=== PATIENT | female | born 1980 | race Caucasian/White ===

== ENCOUNTER 2018-12-27 10:10 | Outpatient (CLI) | payer BC ==
[2018-12-27 17:59] LABS: BASOPHILS % (AUTO) 0.2 %; EOSINOPHILS # (AUTO) 0.1 10^3/uL (0.0-0.7); EOSINOPHILS % (AUTO) 0.5 %; HGB - HEMOGLOBIN 13.3 g/dL (12.0-16.0); LYMPHOCYTES # (AUTO) 3.2 10^3/uL (1.5-3.5); LYMPHOCYTES % (AUTO) 23.5 %; MEAN CORPUSCULAR HEMOGLOBIN 29.6 pg (27.0-31.0); MEAN CORPUSCULAR HGB CONC 32.1 g/dL (32.0-36.0); MEAN CORPUSCULAR VOLUME 92.2 fL (81.0-99.0); MONOCYTES # (AUTO) 1.3 10^3/uL (0.0-1.0); MONOCYTES % (AUTO) 9.2 %; NEUTROPHILS # (AUTO) 9.1 10^3/uL (1.5-6.6); PLT - PLATELET COUNT 541 10^3/uL (130-450); RED BLOOD COUNT 4.49 10^6/uL (4.20-5.40); RED CELL DISTRIBUTION WIDTH 13.1 % (12.0-15.0); WHITE BLOOD COUNT 13.7 x10^3/uL (4.8-10.8)
[2018-12-27 18:46] LABS: ALBUMIN 4.1 g/dL (3.2-5.5); ALBUMIN/GLOBULIN RATIO 1.2 (1.0-2.2); ALKALINE PHOSPHATASE 61 IU/L (42-121); ALT ALANINE AMINOTRANSFERASE 12 IU/L (10-60); AST ASPARTATE AMINOTRANSFERASE 13 IU/L (10-42); BILIRUBIN,TOTAL 0.6 mg/dL (0.2-1.0); BUN - BLOOD UREA NITROGEN 9 mg/dL (6-20); CARBON DIOXIDE - CO2 27 mmol/L (21-32); CHLORIDE 99 mmol/L (101-111); CREATININE 0.6 mg/dL (0.4-1.0); GFR - MDRD 112 (>89); GLUCOSE 85 mg/dL (70-100); IRON 39 ug/dL (28-170); SODIUM 136 mmol/L (135-145); TOTAL PROTEIN 7.5 g/dL (6.7-8.2)
[2018-12-27 18:48] LABS: CRP - C-REACTIVE PROTEIN < 1.0 mg/dL (0-1.0)
[2018-12-27 18:56] LABS: THYROID STIMULATING HORMONE 4.77 uIU/mL (0.34-5.60)
== END 2018-12-27 10:11 | disposition home or self-care (01) ==
LOC: LAB.S 10:10
PROVIDERS: ATTEND Registered Nurse
DX: K50.90 Crohn's disease, unspecified, without complications (principal)
CPT/HCPCS: 36415; 80053; 82306; 82607; 83540; 84443; 85025; 85651; 86140

== ENCOUNTER 2019-01-02 08:39 | Outpatient (CLI) | payer BC | END 2019-01-02 08:40 | disposition home or self-care (01) | LOC: LAB.S 08:39 | PROVIDERS: ATTEND Internal Medicine Gastroenterology | DX: K50.111 Crohn's disease of large intestine with rectal bleeding (principal) | CPT/HCPCS: 36415; 81335; 81599; 86480; 87493 ==

== ENCOUNTER 2019-12-11 08:00 | Outpatient (CLI) | payer BC, OTHER ==
--- NOTE | 2019-12-11 12:37 | XRAY Report ---
PROCEDURE: Foot 3 View RT INDICATIONS: RIGHT FOOT PAIN TECHNIQUE: 3 views of the foot were acquired. COMPARISON: None available FINDINGS: Bones: No fractures or dislocations. No suspicious bony lesions. A mild hallux valgus deformity is seen, with associated degenerative change of the first metatarsophalangeal joint. Soft tissues: No tibiotalar joint effusion. Achilles tendon appears normal. IMPRESSION: Mild hallux valgus deformity. Reviewed by: Chris Romero MD on 12/11/2019 11:35 AM [facility] Approved by: Chris Romero MD on 12/11/2019 11:35 AM [facility] PAUL Station ID: [id number]
== END 2019-12-11 23:59 | disposition home or self-care (01) ==
LOC: DI.S 08:00
PROVIDERS: ATTEND Physician Assistant Medical
DX: M20.11 Hallux valgus (acquired), right foot (principal)

== ENCOUNTER 2020-07-08 09:49 | Outpatient (CLI) | payer OTHER ==
[2020-07-08 14:11] LABS: BASOPHILS % (AUTO) 0.7 %; EOSINOPHILS % (AUTO) 0.7 %; HCT - HEMATOCRIT 37.1 % (37.0-47.0); LYMPHOCYTES # (AUTO) 1.6 10^3/uL (1.5-3.5); LYMPHOCYTES % (AUTO) 37.4 %; MEAN CORPUSCULAR HEMOGLOBIN 29.7 pg (27.0-31.0); MEAN CORPUSCULAR HGB CONC 32.3 g/dL (32.0-36.0); MEAN CORPUSCULAR VOLUME 91.8 fL (81.0-99.0); MEAN PLATELET VOLUME 9.5 fL (7.9-10.8); MONOCYTES # (AUTO) 0.3 10^3/uL (0.0-1.0); MONOCYTES % (AUTO) 7.7 %; NEUTROPHILS # (AUTO) 2.4 10^3/uL (1.5-6.6); NEUTROPHILS % (AUTO) 53.5 %; PLT - PLATELET COUNT 383 10^3/uL (130-450); RED BLOOD COUNT 4.04 10^6/uL (4.20-5.40); RED CELL DISTRIBUTION WIDTH 13.2 % (12.0-15.0); WHITE BLOOD COUNT 4.4 x10^3/uL (4.8-10.8)
[2020-07-08 15:13] LABS: % IRON SATURATION 35 % (20-50); ALBUMIN 4.5 g/dL (3.2-5.5); ALBUMIN/GLOBULIN RATIO 1.7 (1.0-2.2); ALKALINE PHOSPHATASE 52 IU/L (42-121); ALT ALANINE AMINOTRANSFERASE 16 IU/L (10-60); AST ASPARTATE AMINOTRANSFERASE 22 IU/L (10-42); BILIRUBIN,TOTAL 0.9 mg/dL (0.2-1.0); BUN - BLOOD UREA NITROGEN 10 mg/dL (6-20); CALCIUM 9.8 mg/dL (8.5-10.3); CARBON DIOXIDE - CO2 26 mmol/L (21-32); CHLORIDE 101 mmol/L (101-111); CREATININE 0.4 mg/dL (0.4-1.0); GFR - MDRD 179 (>89); GLUCOSE 112 mg/dL (70-100); IRON 145 ug/dL (28-170); POTASSIUM 3.6 mmol/L (3.5-5.0); SODIUM 134 mmol/L (135-145); TOTAL IRON BINDING CAPACITY 414 ug/dL (250-450); TOTAL PROTEIN 7.1 g/dL (6.7-8.2); TRANSFERRIN 296 mg/dL (192-382)
[2020-07-08 15:19] LABS: CRP - C-REACTIVE PROTEIN < 1.0 mg/dL (0-1.0)
[2020-07-08 15:22] LABS: FERRITIN 11.3 ng/mL (11.0-306.8)
[2020-07-08 15:26] LABS: FOLATE 14.34 ng/mL (5.90 - >24.8)
[2020-07-10 12:01] LABS: NIL 0.07 IU/mL; TB1-NIL 0.02 IU/mL; TB2-NIL 0.01 IU/mL
== END 2020-07-08 09:50 | disposition home or self-care (01) ==
LOC: LAB.S 09:49
PROVIDERS: ATTEND Physician Assistant
DX: K50.111 Crohn's disease of large intestine with rectal bleeding (principal)
CPT/HCPCS: 36415; 80053; 82306; 82607; 82728; 82746; 83540; 84466; 85025; 86140; 86480

== ENCOUNTER 2022-05-05 13:34 | Emergency (ER) | payer OTHER ==
--- OUTSIDE RECORDS SUMMARY | 2022-05-05 13:55 | EXTERNAL MEDICAL SUMMARY RPT | Continuity of Care Document ---
:1980 Author Organization [facility] Address [address] [place] [address] Phone Care Team Providers Name Role Phone Unavailable Unavailable Unavailable Shea George Unavailable Unavailable Allergies No information. Encounters No information. Functional Status No information. Immunizations No information. Medications date description facility 2022-05-05 00:00 vedolizumab [facility] [place] 2022-05-05 00:00 vedolizumab [facility] [place] 2022-05-05 00:00 vedolizumab [facility] [place] 2022-05-05 00:00 vedolizumab [facility] [place] Problems date description facility 2022-05-05 00:00 rSr pattern in V1 and V2 [facility] [place] 2022-05-05 00:00 Tremor [facility] [place] 2022-05-05 00:00 Cannabis abuse, unspecified use [facility] [place] 2022-05-05 00:00 Tachycardia [facility] [place] 2022-05-05 00:00 Cannabis abuse [facility] [place] 2022-05-05 00:00 Abnormal involuntary movements [facility] [place] 2022-05-05 00:00 Nonspecific abnormal [facility] electrocardiogram [ECG] [EKG] & [facility] [place] 2022-05-05 00:00 Cannabis abuse, uncomplicated [facility] [place] 2022-05-05 00:00 Tachycardia, unspecified [facility] [place] 2022-05-05 00:00 Tremor, unspecified [facility] [place] 2022-05-05 00:00 Abnormal electrocardiogram [ECG] Walk- In [facility] [EKG] [facility] [place] Procedures date description facility 2022-05-05 00:00 Visit Code Hold [facility] [place] 2022-05-05 00:00 POC GLUCOSE BLOOD TEST Walk-In [facility] [place] 2022-05-05 00:00 EKG Office Complete [facility] [place] Results/Labs test date author facility value unit interpret ation Result panel 1 (unknown) (no date) (unknown) Walk-In (no value) (units (unk nown) Clinic Primary unknown) [facility] [place] Result panel 2 (unknown) (no date) (unknown) Walk-In (no value) (units (unk nown) Clinic Primary unknown) [facility] [place] Social History date description facility 2022-05-05 00:00 Never smoker [facility] [place] Vital Signs date measurement value units 2022-05-05 00:00 BMI 20.71 kg/m2 2022-05-05 00:00 BP_diastolic 82 mmHg 2022-05-05 00:00 BP_systolic 141 mmHg 2022-05-05 00:00 heart_rate 77 /min 2022-05-05 00:00 height_metric 165.1 cm 2022-05-05 00:00 height_standard 65 in 2022-05-05 00:00 respiration_rate 16 /min 2022-05-05 00:00 temperature_metric 36.44 C 2022-05-05 00:00 temperature_standard 97.6 F 2022-05-05 00:00 weight_metric 56.25 kg 2022-05-05 00:00 weight_standard 124 lb
[2022-05-05 14:46] LABS: BASOPHILS % (AUTO) 0.2 %; HCT - HEMATOCRIT 38.1 % (37.0-47.0); HGB - HEMOGLOBIN 12.7 g/dL (12.0-16.0); LYMPHOCYTES # (AUTO) 1.2 10^3/uL (1.5-3.5); LYMPHOCYTES % (AUTO) 13.1 %; MEAN CORPUSCULAR HEMOGLOBIN 30.3 pg (27.0-31.0); MEAN CORPUSCULAR HGB CONC 33.3 g/dL (32.0-36.0); MEAN CORPUSCULAR VOLUME 90.9 fL (81.0-99.0); MEAN PLATELET VOLUME 8.6 fL (7.9-10.8); MONOCYTES # (AUTO) 0.3 10^3/uL (0.0-1.0); MONOCYTES % (AUTO) 3.4 %; NEUTROPHILS # (AUTO) 7.5 10^3/uL (1.5-6.6); NEUTROPHILS % (AUTO) 83.2 %; PLT - PLATELET COUNT 365 10^3/uL (130-450); RED BLOOD COUNT 4.19 10^6/uL (4.20-5.40); RED CELL DISTRIBUTION WIDTH 12.7 % (12.0-15.0); WHITE BLOOD COUNT 9.1 x10^3/uL (4.8-10.8)
[2022-05-05 15:07] LABS: ALBUMIN 4.8 g/dL (3.2-5.5); ALBUMIN/GLOBULIN RATIO 1.5 (1.0-2.2); BILIRUBIN,TOTAL 0.9 mg/dL (0.2-1.0); CALCIUM 10.1 mg/dL (8.5-10.3); CREATININE 0.6 mg/dL (0.4-1.0); POTASSIUM 3.9 mmol/L (3.5-5.0); TOTAL PROTEIN 8.1 g/dL (6.7-8.2)
--- NOTE | 2022-05-05 15:13 | XRAY Report ---
PROCEDURE: Chest 1 View X-Ray INDICATIONS: Chest Pain TECHNIQUE: One view of the chest was acquired. COMPARISON: None. FINDINGS: Surgical changes and devices: None. Lungs and pleura: No pleural effusions or pneumothorax. Lungs are clear. Mediastinum: Mediastinal contours appear normal. Heart size is normal. Bones and chest wall: No suspicious bony lesions. Overlying soft tissues appear unremarkable. IMPRESSION: No acute pulmonary process. Reviewed by: Shila Hutchison MD on 05/05/2022 3:12 PM [facility] Approved by: Shila Hutchison MD on 05/05/2022 3:12 PM [facility] Station ID: [id number]
--- NOTE | 2022-05-05 15:53 | ED Physician Documentation ---
History of Present Illness - Stated complaint Stated Complaint: ANXIETY - Chief complaint Chief Complaint: Cardiac - Additonal information Additional information: 41-year-old female was referred to the emergency department from a local walk-in clinic for evaluation and near syncope. The patient states that for the last few days she has been feeling like she is going to faint. These are typically occurring at rest and she feels like her heart is racing before hand. She is denying dyspnea or chest pain. She has fainted multiple times in the past but usually attributed that to pain or blood draws. Her sister also has a similar history with an extensive work-up and no cause was found. Patient was at home this morning getting her son ready for school when she began to feel the symptoms of near syncope so she summoned 911. EMS felt she could be seen at a local walk-in clinic which she went to before they referred her here Patient has no recent travel, unilateral leg swelling, takes hormones or history of DVT or cancer. She is a non-smoker. She takes citalopram only for anxiety and depression. She denies any stress. Patient is a good historian Review of Systems Constitutional: denies: Fever, Chills Cardiac: reports: Reviewed and negative Respiratory: reports: Reviewed and negative GI: reports: Reviewed and negative : reports: Reviewed and negative Neurologic: reports: Syncope. denies: Numbness, Difficulty speaking, Confused, Altered mental status, Unresponsive, Headache PD PAST MEDICAL HISTORY - Allergies Allergies/Adverse Reactions: Allergies Allergy/AdvReac Type Severity Reaction Status Date / Time Sulfa (Sulfonamide Allergy Unknown Verified 05/05/22 14:30 Antibiotics) PD ED PE NORMAL - General General: Alert and oriented X 3, No acute distress - HEENT HEENT: PERRL - Neck Neck: Supple, no meningeal sign, No adenopathy - Cardiac Cardiac: RRR, No murmur - Respiratory Respiratory: No respiratory distress, Clear bilaterally - Abdomen Abdomen: Normal bowel sounds, Soft - Back Back: No CVA TTP, No spinal TTP - Derm Derm: Normal color, Warm and dry, No rash - Extremities Extremities: No deformity, No tenderness to palpate, Normal ROM s pain - Neuro Neuro: Alert and oriented X 3, 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 Eye Opening: Spontaneous Motor: Obeys Commands Verbal: Oriented GCS Score: 15 Results - Vitals Vitals: Vital Signs - 24 hr 05/05/22 05/05/22 05/05/22 14:30 15:05 15:30 Temperature 37.1 C Heart Rate 78 67 69 Heart Rate [ Sitting] Heart Rate [ Standing] Heart Rate [ Supine] Respiratory 17 15 16 Rate Blood Pressure 120/62 107/61 90/64 Blood Pressure [Sitting] Blood Pressure [Standing] Blood Pressure [Supine] O2 Saturation 98 99 99 05/05/22 05/05/22 05/05/22 15:57 17:00 17:30 Temperature Heart Rate 85 80 Heart Rate [ 89 Sitting] Heart Rate [ 100 Standing] Heart Rate [ 72 Supine] Respiratory 11 L 18 Rate Blood Pressure 100/83 H 141/94 H Blood Pressure 119/90 H [Sitting] Blood Pressure 104/86 H [Standing] Blood Pressure 127/64 [Supine] O2 Saturation 100 100 05/05/22 18:03 Temperature Heart Rate Heart Rate [ 74 Sitting] Heart Rate [ 71 Standing] Heart Rate [ 69 Supine] Respiratory Rate Blood Pressure Blood Pressure 150/93 H [Sitting] Blood Pressure 159/110 H [Standing] Blood Pressure 133/104 H [Supine] O2 Saturation Oxygen O2 Source Room air - EKG (time done) 1504 Rate: Rate (enter#) (69) Rhythm: NSR [place]: Normal Intervals: Normal AR, Other (Questionable RSR prime in V1. Likely normal variant.) QRS: Normal Ischemia: Normal ST segments Compare to prior EKG: Old EKG unavailable Computer interpretation: Agree with computer (Nothing to suggest Brugada or WPW) - Labs Labs: Laboratory Tests 05/05/22 05/05/22 05/05/22 14:36 14:36 14:36 WBC 9.1 RBC 4.19 L Hgb 12.7 Hct 38.1 MCV 90.9 MCH 30.3 MCHC 33.3 RDW 12.7 Plt Count 365 MPV 8.6 Neut # (Auto) 7.5 H Lymph # (Auto) 1.2 L [place] # (Auto) 0.3 Eos # (Auto) 0.0 Baso # (Auto) 0.0 Absolute Nucleated RBC 0.00 Nucleated RBC % 0.0 Sodium 132 L Potassium 3.9 Chloride 97 L Carbon Dioxide 21 Anion Gap 14.0 H BUN 11 Creatinine 0.6 Estimated GFR (MDRD) 111 Glucose 110 H Calcium 10.1 Total Bilirubin 0.9 AST 27 ALT 17 Alkaline Phosphatase 64 Troponin I High Sens < 2.3 L B-Natriuretic Peptide Total Protein 8.1 Albumin 4.8 Globulin 3.3 Albumin/Globulin Ratio 1.5 Lipase 24 TSH 05/05/22 05/05/22 14:36 14:36 WBC RBC Hgb Hct MCV MCH MCHC RDW Plt Count MPV Neut # (Auto) Lymph # (Auto) [place] # (Auto) Eos # (Auto) Baso # (Auto) Absolute Nucleated RBC Nucleated RBC % Sodium Potassium Chloride Carbon Dioxide Anion Gap BUN Creatinine Estimated GFR (MDRD) Glucose Calcium Total Bilirubin AST ALT Alkaline Phosphatase Troponin I High Sens B-Natriuretic Peptide 10 Total Protein Albumin Globulin Albumin/Globulin Ratio Lipase TSH 2.05 PD Medical Decision Making - ED course Complexity details: reviewed results, re-evaluated patient, considered differential, d/w patient ED course: 41-year-old female was referred to the emergency department from a local walk-in clinic for evaluation of near syncope over the last few days. The EKG at the time of the walk-in clinic visit showed RSR prime in 1-lead only and the referring provider was concerned about Brugada syndrome. However here in the emergency department today I do not have any electrical abnormalities that would suggest WPW or Brugada. We did obtain a CBC electrolytes and TSH that were all essentially normal. Chest x-ray was without findings suggest pleural effusion, cardiomegaly or volume overload. We initially checked orthostatic blood pressures and found that she had a marked rise in her heart rate with standing. She also felt presyncopal. We did replete her with a liter of IV fluids and on reevaluation she has no tachycardia with position changes. It is possible that this could represent orthostatic hypotension though the patient does not have any reason for volume dehydration and clinically does not appear dehydrated. At this time as her symptoms have resolved she is discharged home in stable condition with advised to follow closely with her PCP for reevaluation Departure - Departure Disposition: 01 Home, Self Care Clinical Impression: Near syncope, Orthostatic hypotension Condition: Stable Record reviewed to determine appropriate education?: Yes Instructions: ED Hypotension Orthostatic Comments: You are seen today in the emergency department for a sensation and near fainting over the last few days. Here in the emergency department we did do routine labs were essentially normal. Chest x-ray is normal. Your EKG is without worrisome findings. Initially when we checked your blood pressures in various position you had a marked rise in your heart rate though your blood pressure did not become hypotensive. We did give you some IV fluids and on repeat evaluation the symptoms seem to have improved. There seems to be familial history of near syncope and fainting. I am not sure what the cause of your symptoms is today. I do recommend that you stay well- hydrated. Please discuss this ED visit with your primary care doctor. You may benefit from an outpatient echocardiogram or stress test. Return immediately to the ER if you develop any fevers, have fainting, chest pain or severe shortness of air
[2022-05-05] MEDS: SODIUM CHLORIDE 0.9% 1,000 ML IV STA (16:03)
[2022-05-05 18:05] VITALS: BP 133/104
== END 2022-05-05 18:29 | disposition home or self-care (01) ==
LOC: EDUNIT# → ED 13:34
DX: I95.1 Orthostatic hypotension (principal)
CPT/HCPCS: 36415; 80053; 83690; 83880; 84443; 84484; 85025; 93005; 96360; 99284

== ENCOUNTER 2022-10-16 08:00 | Outpatient (CLI) | payer MEDICAID, OTHER | END 2022-10-16 23:59 | disposition home or self-care (01) | LOC: LAB.S 08:00 | PROVIDERS: ATTEND Physician Assistant | DX: J02.9 Acute pharyngitis, unspecified (principal) | CPT/HCPCS: 87070 ==

== ENCOUNTER 2023-01-26 12:40 | Outpatient (CLI) | payer MEDICAID ==
[2023-01-26 14:33] LABS: BASOPHILS % (AUTO) 0.6 %; EOSINOPHILS # (AUTO) 0.1 10^3/uL (0.0-0.7); EOSINOPHILS % (AUTO) 1.1 %; HCT - HEMATOCRIT 37.4 % (37.0-47.0); HGB - HEMOGLOBIN 12.2 g/dL (12.0-16.0); LYMPHOCYTES # (AUTO) 2.2 10^3/uL (1.5-3.5); LYMPHOCYTES % (AUTO) 30.9 %; MEAN CORPUSCULAR HEMOGLOBIN 30.6 pg (27.0-31.0); MEAN CORPUSCULAR HGB CONC 32.6 g/dL (32.0-36.0); MEAN CORPUSCULAR VOLUME 93.7 fL (81.0-99.0); MEAN PLATELET VOLUME 9.3 fL (7.9-10.8); MONOCYTES # (AUTO) 0.6 10^3/uL (0.0-1.0); MONOCYTES % (AUTO) 7.8 %; NEUTROPHILS # (AUTO) 4.2 10^3/uL (1.5-6.6); NEUTROPHILS % (AUTO) 59.5 %; PLT - PLATELET COUNT 385 10^3/uL (130-450); RED BLOOD COUNT 3.99 10^6/uL (4.20-5.40); RED CELL DISTRIBUTION WIDTH 12.8 % (12.0-15.0); WHITE BLOOD COUNT 7.1 x10^3/uL (4.8-10.8)
[2023-01-26 14:46] LABS: ALBUMIN 4.8 g/dL (3.2-5.5); ALBUMIN/GLOBULIN RATIO 1.8 (1.0-2.2); ALKALINE PHOSPHATASE 57 IU/L (42-121); ALT ALANINE AMINOTRANSFERASE 15 IU/L (10-60); AST ASPARTATE AMINOTRANSFERASE 23 IU/L (10-42); BILIRUBIN,TOTAL 0.6 mg/dL (0.2-1.0); BUN - BLOOD UREA NITROGEN 11 mg/dL (6-20); CALCIUM 10.4 mg/dL (8.5-10.3); CARBON DIOXIDE - CO2 28 mmol/L (21-32); CHLORIDE 101 mmol/L (101-111); CREATININE 0.5 mg/dL (0.6-1.3); CRP - C-REACTIVE PROTEIN < 0.5 mg/dL (<0.5); GFR - MDRD 136 (>89); GLUCOSE 82 mg/dL (74-104); POTASSIUM 4.3 mmol/L (3.5-4.5); SODIUM 134 mmol/L (135-145); TOTAL PROTEIN 7.4 g/dL (6.4-8.9)
== END 2023-01-26 12:41 | disposition home or self-care (01) ==
LOC: LAB.S 12:40
PROVIDERS: ATTEND Internal Medicine Gastroenterology
DX: K50.111 Crohn's disease of large intestine with rectal bleeding (principal)
CPT/HCPCS: 36415; 80053; 85025; 86140

== ENCOUNTER 2023-02-14 09:29 | Emergency (ER) | payer MEDICAID ==
[2023-02-14 11:17] LABS: BASOPHILS # (AUTO) 0.1 10^3/uL (0.0-0.1); BASOPHILS % (AUTO) 0.3 %; EOSINOPHILS # (AUTO) 0.1 10^3/uL (0.0-0.7); EOSINOPHILS % (AUTO) 0.6 %; HCT - HEMATOCRIT 41.2 % (37.0-47.0); HGB - HEMOGLOBIN 13.7 g/dL (12.0-16.0); LYMPHOCYTES # (AUTO) 2.2 10^3/uL (1.5-3.5); LYMPHOCYTES % (AUTO) 14.9 %; MEAN CORPUSCULAR HGB CONC 33.3 g/dL (32.0-36.0); MEAN CORPUSCULAR VOLUME 90.2 fL (81.0-99.0); MEAN PLATELET VOLUME 8.3 fL (7.9-10.8); MONOCYTES # (AUTO) 0.9 10^3/uL (0.0-1.0); NEUTROPHILS # (AUTO) 11.6 10^3/uL (1.5-6.6); NEUTROPHILS % (AUTO) 77.8 %; PLT - PLATELET COUNT 502 10^3/uL (130-450); RED BLOOD COUNT 4.57 10^6/uL (4.20-5.40); RED CELL DISTRIBUTION WIDTH 13.1 % (12.0-15.0); WHITE BLOOD COUNT 14.9 x10^3/uL (4.8-10.8)
[2023-02-14 11:25] LABS: ALBUMIN 4.7 g/dL (3.2-5.5); ALBUMIN/GLOBULIN RATIO 1.4 (1.0-2.2); ALKALINE PHOSPHATASE 76 IU/L (42-121); ALT ALANINE AMINOTRANSFERASE 13 IU/L (10-60); AST ASPARTATE AMINOTRANSFERASE 18 IU/L (10-42); BILIRUBIN,TOTAL 0.4 mg/dL (0.2-1.0); BUN - BLOOD UREA NITROGEN 7 mg/dL (6-20); CALCIUM 10.5 mg/dL (8.5-10.3); CARBON DIOXIDE - CO2 30 mmol/L (21-32); CHLORIDE 100 mmol/L (101-111); CREATININE 0.5 mg/dL (0.6-1.3); GFR - MDRD 136 (>89); GLUCOSE 81 mg/dL (74-104); POTASSIUM 4.4 mmol/L (3.5-4.5); SODIUM 137 mmol/L (135-145)
[2023-02-14 11:35] LABS: LIPASE < 10 U/L (11-82)
[2023-02-14] MEDS ORDERED: HYDROmorphone 1 MG/ML CARPUJECT IVP STA ×2 (14:46→19:22)
[2023-02-14] MEDS ORDERED: methylPREDNISolone SUCCINATE 125 MG/2 ML VIAL IVP STA (14:47)
--- NOTE | 2023-02-14 14:52 | ED Physician Documentation ---
PD HPI ABD PAIN - Stated complaint Stated Complaint: GI - Chief complaint Chief Complaint: Abd Pain - History obtained from History obtained from: Patient - Additional information Additional information: The patient comes to the emergency department chief complaint of Lower abdominal pain and diarrhea for the last 3 weeks. She has a history of Crohn's disease and has not been able to be on her injections, due to a change of insurance. She states that her last dose was about 4 months ago. She states that she is currently having about 20 bloody stools per day at this point and that she had so much spasm around her rectum that she ended up sustaining a tear to her posterior vaginal introitus. She states has been a lot of pain there and that she has had more discharge from her vagina than usual. She states that it is like a brownish tinged white and she is concerned that she may have a rectovaginal fistula. She denies any fevers or chills. Her discharge does not smell different than usual and does not look like what is coming out of her rectum. She has had occasional nausea but no vomiting. No other complaints at this time. PD PAST MEDICAL HISTORY - Past Medical History Past Medical History: Yes GI: Crohn's disease - Present Medications Home Medications: Ambulatory Orders Medication Instructions Recorded Confirmed Vedolizumab [Entyvio] 300 mg IV MAINTENANCE.IV 01/29/23 02/14/23 Ciprofloxacin HCl [Cipro] 500 mg PO BID #20 tablet 02/14/23 Oxycodone HCl/Acetaminophen 1 - 2 each PO Q6H PRN #14 tablet 02/14/23 [Percocet 5-325 mg Tablet] metroNIDAZOLE [Flagyl] 500 mg PO TID 7 Days #30 tablet 02/14/23 predniSONE [Deltasone] 10 mg PO [id number] #42 tab 02/14/23 - Allergies Allergies/Adverse Reactions: Allergies Allergy/AdvReac Type Severity Reaction Status Date / Time Sulfa (Sulfonamide Allergy Hives Verified 01/29/23 12:12 Antibiotics) - Social History Does the pt smoke?: No Smoking Status: Never smoker PD ED PE NORMAL - Vitals Vital signs reviewed: Yes - General General: Alert and oriented X 3, No acute distress, Well developed/nourished - HEENT HEENT: Atraumatic, PERRL, EOMI, Moist mucous membranes - Neck Neck: Supple, no meningeal sign - Cardiac Cardiac: RRR, No murmur - Respiratory Respiratory: No respiratory distress, Clear bilaterally - Abdomen Abdomen: Soft, Non distended, Other (Diffuse lower abdominal tenderness, no rebound or guarding.) - Female Female : Form Presser present, Other (Superficial, grade 1 tear to this posterior aspect of the vaginal introitus. No bleeding. Difficult to determine exactly how far up the mucosal tear goes, secondary to patient's intolerance of exam. No fecal material noted from vagina. Moderate white discharge non-malodorous.) - Derm Derm: Normal color, Warm and dry, No rash - Extremities Extremities: No deformity - Neuro Neuro: Alert and oriented X 3 - Psych Psych: Normal mood, Normal affect Results - Vitals Vitals: Oxygen O2 Source Room air - Labs Labs: Laboratory Tests 02/14/23 02/14/23 02/14/23 11:08 11:08 11:08 WBC 14.9 H RBC 4.57 Hgb 13.7 Hct 41.2 MCV 90.2 MCH 30.0 MCHC 33.3 RDW 13.1 Plt Count 502 H MPV 8.3 Neut # (Auto) 11.6 H Lymph # (Auto) 2.2 [place] # (Auto) 0.9 Eos # (Auto) 0.1 Baso # (Auto) 0.1 Absolute Nucleated RBC 0.00 Nucleated RBC % 0.0 Sodium 137 Potassium 4.4 Chloride 100 L Carbon Dioxide 30 Anion Gap 7.0 BUN 7 Creatinine 0.5 L Estimated GFR (MDRD) 136 Glucose 81 Calcium 10.5 H Total Bilirubin 0.4 AST 18 ALT 13 Alkaline Phosphatase 76 Total Protein 8.0 Albumin 4.7 Globulin 3.3 Albumin/Globulin Ratio 1.4 Lipase < 10 L Serum HCG, Qual NEGATIVE Urine Color Urine Clarity Urine pH Ur Specific [place] Urine Protein Urine Glucose (UA) Urine Ketones Urine Occult Blood Urine Nitrite Urine Bilirubin Urine Urobilinogen Ur Leukocyte Esterase Urine RBC Urine WBC Ur Squamous Epith Cells Urine Bacteria Urine Mucus Ur Microscopic Review Urine Culture Comments 02/14/23 19:36 WBC RBC Hgb Hct MCV MCH MCHC RDW Plt Count MPV Neut # (Auto) Lymph # (Auto) [place] # (Auto) Eos # (Auto) Baso # (Auto) Absolute Nucleated RBC Nucleated RBC % Sodium Potassium Chloride Carbon Dioxide Anion Gap BUN Creatinine Estimated GFR (MDRD) Glucose Calcium Total Bilirubin AST ALT Alkaline Phosphatase Total Protein Albumin Globulin Albumin/Globulin Ratio Lipase Serum HCG, Qual Urine Color YELLOW Urine Clarity HAZY Urine pH 6.0 Ur Specific [place] 1.020 Urine Protein TRACE Urine Glucose (UA) NEGATIVE Urine Ketones 40 H Urine Occult Blood NEGATIVE Urine Nitrite NEGATIVE Urine Bilirubin NEGATIVE Urine Urobilinogen 0.2 (NORMAL) Ur Leukocyte Esterase NEGATIVE Urine RBC 0-5 Urine WBC 6-10 H Ur Squamous Epith Cells MANY Squamous H Urine Bacteria Few Urine Mucus Moderate Strands Ur Microscopic Review INDICATED Urine Culture Comments NOT INDICATED PD Medical Decision Making - ED course Complexity details: reviewed results, re-evaluated patient, considered differential, d/w patient ED course: The patient was treated symptomatically with IV fluids, solumedrol and Dilaudid and worked up with labs, followed by CT scan of the abdomen and pelvis. Laboratory studies were unremarkable except for mild leukocytosis. The patient was pending CT of the abdomen and pelvis at change of shift, and as such, she was signed out to Dr. Black. Final disposition will be determined after CT is done. Departure - Departure Disposition: Home, Self Care Clinical Impression: Exacerbation of Crohn's disease Qualifiers: Digestive disease complication type: with rectal bleeding Qualified Code(s): K50.911 - Crohn's disease, unspecified, with rectal bleeding Condition: Stable Instructions: ED Inflam Bowel Disease Crohn Prescriptions: Ciprofloxacin HCl [Cipro] 500 mg PO BID #20 tablet predniSONE [Deltasone] 10 mg PO [id number] #42 tab metroNIDAZOLE [Flagyl] 500 mg PO TID 7 Days #30 tablet Oxycodone HCl/Acetaminophen [Percocet 5-325 mg Tablet] 1 - 2 each PO Q6H PRN #14 tablet PRN Reason: pain Comments: I sent your prescription electronically to the [facility]. As discussed, you have a severe Crohn's flare on CT and I am starting steroids and antibiotics as well as some pain medication. You should follow-up with your deburrer strip for next available appointment. He may want to delay the colonoscopy given the severity of your current flare. The radiologist did not necessarily feel you had an obvious rectovaginal fistula but this is not completely ruled out on today's study and you may need further work-up for this which her GI can arrange for you. Specifically the radiologist confirmed a nonemergent barium enema fluoroscopic study. I am prescribing a short course of narcotic pain medication for you. These are potentially dangerous and addictive medications that should be used carefully. These medications may constipate you. Take an sekb-giv-eimsorv stool softener (docusate) twice daily with plenty of water while taking these medications. If you go 24 hours without a bowel movement, take [id number] miralax, per package instructions. Do not drink or drive while taking these medications. If you received narcotic or sedating medications while in the emergency department, do not drive for 24 hours. Store this medication in a safe, secure place and out of reach of children. It is a violation of federal law to give or sell this medication to another person or to use in a manner other than prescribed. The ED will not refill narcotic prescriptions, including prescriptions lost or stolen. To dispose of unwanted medications: 1. [facility] provides a drop box for medication in pill form only (no liquids) 8:00 am to 4:30 p.m. Wednesday-Wednesday in the lobby of the [facility], [address] [place] [address]. Empty pills into ziplock bag before disposal. Call [phone] for information. 2.[employer] is a free service available to all [facility] residents. Go to [email or web address] Note that many narcotic pain relievers also contain Tylenol/acetaminophen. Please ensure that your total dose of acetaminophen from all sources does not exceed 3 g (3000 mg) per day. Forms: PCP List Discharge Date/Time: 02/14/23 20:03
[2023-02-14 16:31] LABS: HCG,QUALITATIVE BLOOD NEGATIVE
[2023-02-14] MEDS ORDERED: ONDANSETRON 4 MG/2 ML VIAL IVP STA ×2 (16:38→19:39)
--- NOTE | 2023-02-14 19:09 | CT Report ---
PROCEDURE: ABDOMEN/PELVIS W INDICATIONS: abd pain/crohn's/?rect-vag fistula? CONTRAST: 100ml omni 300 TECHNIQUE: After the administration of intravenous contrast, 5 mm thick sections acquired from the diaphragms to the symphysis. 5 mm thick coronal and sagittal reformats were acquired. For radiation dose reducti on, the following was used: automated exposure control, adjustment of mA and/or kV according to fede ent size. COMPARISON: None FINDINGS: Image quality: Excellent. Lung bases and heart: Left breast prosthesis. Liver: No solid mass. Gallbladder and biliary tree: No radiopaque stones or wall thickening. No biliary dilation. Spleen: No splenomegaly. Pancreas: No pancreatic ductal dilation. Adrenals: No adrenal nodule. Kidneys and ureters: No hydronephrosis. No renal cystic lesion which requires follow up. No solid mas s. Bowel and peritoneum: Moderate wall thickening of the descending colon to the rectum, with wall strat ification. Lymph nodes: No central or retroperitoneal adenopathy. Vessels: No infrarenal aortic aneurysm. PELVIS Reproductive organs: There is fluid and gas within the vagina. The vaginal wall appears mildly thicke dilcia. Bladder: No abnormal wall thickening, accounting for underdistension. Pelvic lymph nodes: No pelvic adenopathy by size criteria. Bones: Avascular necrosis of the right hip. Other: No significant ventral or inguinal hernia. IMPRESSION: Colitis and proctitis of the descending colon to the rectum. Findings probably represent acute inflam matory bowel disease. Fluid and gas within the vagina, and the vaginal wall appears mildly thickened. Underlying fistula to the vagina is not entirely excluded. This can be confirmed with nonemergent barium enema fluoroscopi c study. Avascular necrosis of the right hip. Reviewed by: Tarik Brown on 02/14/2023 7:08 PM PDT Approved by: Tarik Brown on 02/14/2023 7:08 PM PDT Station ID: [id number]
[2023-02-14] MEDS ORDERED: iohexoL-300 100 ML VIAL IVP ONE (19:12)
[2023-02-14] MEDS ORDERED: oxyCODONE/ACET 5/325 Prepack 4 PO STA (19:22)
[2023-02-14] MEDS ORDERED: CIPROFLOXACIN 250 MG TABLET PO STA (19:22)
[2023-02-14] MEDS ORDERED: metroNIDAZOLE 250 MG TABLET PO STA (19:22)
--- NOTE | 2023-02-14 19:24 | ED Physician Documentation ---
ED Addendum - Addendum Addendum: 02/14/23 19:[address] Espinosa at 6 PM shift change. Briefly this is a 42-year-old woman with severe Crohn's who for some time was off of her Entyvio but restarted it 3 weeks ago but now has a flare of her Crohn's with severe colitis and bloody diarrhea and there is also concern for rectovaginal fistula. Pending CT scanning, this is done and noticed for severe colitis/proctitis. Radiologist could not rule out rectovaginal fistula. Discussed with patient that probably did not need definitive diagnosis tonight as she did not tolerate pelvic examination with Dr. Espinosa well and we will keep her on steroids, start Cipro and Flagyl, manage her pain, and have her follow-up with GI. Patient comfortable with plan. Disposition: Discharged home Condition: Stable Diagnosis: 1. Severe Crohn's flare
[2023-02-14 19:42] LABS: BILIRUBIN,URINE NEGATIVE (NEGATIVE); CLARITY,URINE HAZY (CLEAR); GLUCOSE, URINE (UA) NEGATIVE (NEGATIVE); KETONES,URINE (UA) 40 mg/dL (NEGATIVE); LEUKOCYTE ESTERASE, URINE NEGATIVE (NEGATIVE); NITRITE,URINE NEGATIVE (NEGATIVE); OCCULT BLOOD,URINE NEGATIVE (NEGATIVE); PROTEIN,URINE TRACE mg/dL (NEGATIVE); UROBILINOGEN,URINE 0.2 (NORMAL) E.U./dL (NORMAL)
[2023-02-14 19:51] LABS: BACTERIA,URINE Few /HPF (None Seen); MUCUS,URINE Moderate Strands; RBC,URINE 0-5 /HPF (0-5); SQUAMOUS EPITHELIAL CELL,UR MANY Squamous (<= Few)
[2023-02-14 19:56] VITALS: BP 119/65; O2SAT 97
== END 2023-02-14 20:03 | disposition home or self-care (01) ==
LOC: ED 09:29
DX: K50.911 Crohn's disease, unspecified, with rectal bleeding (principal); Z79.899 Other long term (current) drug therapy
CPT/HCPCS: 36415; 74177; 80053; 81001; 83690; 84703; 85025; 96374; 96375; 96376; 99285; A9270; J1170; Q9967; 81003; 87086

== ENCOUNTER 2023-03-29 12:34 | Outpatient (CLI) | payer MEDICAID | END 2023-03-29 12:35 | disposition home or self-care (01) | LOC: LAB 12:34 | PROVIDERS: ATTEND Internal Medicine | DX: R93.5 Abnormal findings on diagnostic imaging of other abdominal regions, including retroperitoneum (principal); K50.111 Crohn's disease of large intestine with rectal bleeding | CPT/HCPCS: 80280; 81599; 82397 ==

== ENCOUNTER 2023-07-29 08:25 | Outpatient (CLI) | payer MEDICAID ==
[2023-07-29 14:34] LABS: HCT - HEMATOCRIT 29.3 % (37.0-47.0); HGB - HEMOGLOBIN 8.7 g/dL (12.0-16.0); MEAN CORPUSCULAR HEMOGLOBIN 23.6 pg (27.0-31.0); MEAN CORPUSCULAR HGB CONC 29.7 g/dL (32.0-36.0); MEAN CORPUSCULAR VOLUME 79.4 fL (81.0-99.0); MEAN PLATELET VOLUME 8.2 fL (7.9-10.8); RED BLOOD COUNT 3.69 10^6/uL (4.20-5.40); RED CELL DISTRIBUTION WIDTH 17.1 % (12.0-15.0); WHITE BLOOD COUNT 11.8 x10^3/uL (4.8-10.8)
[2023-07-29 15:21] LABS: THYROID STIMULATING HORMONE 2.24 uIU/mL (0.34-5.60)
[2023-07-29 15:34] LABS: ALBUMIN 2.9 g/dL (3.2-5.5); ALKALINE PHOSPHATASE 61 IU/L (42-121); ALT ALANINE AMINOTRANSFERASE 6 IU/L (10-60); AST ASPARTATE AMINOTRANSFERASE 8 IU/L (10-42); BILIRUBIN,TOTAL 0.2 mg/dL (0.2-1.0); BUN - BLOOD UREA NITROGEN 6 mg/dL (6-20); CALCIUM 9.4 mg/dL (8.5-10.3); CARBON DIOXIDE - CO2 28 mmol/L (21-32); CHLORIDE 100 mmol/L (101-111); CHOL/HDL RATIO 2.8 (<4.4); CHOLESTEROL 161 mg/dL; CREATININE 0.5 mg/dL (0.6-1.3); GFR - MDRD 136 (>89); GLUCOSE 78 mg/dL (74-104); HDL CHOLESTEROL 57 mg/dL; LDL CHOLESTEROL,CALCULATED 80 mg/dL; LDL/HDL RATIO 1.4 (<4.4); POTASSIUM 4.1 mmol/L (3.5-4.5); SODIUM 132 mmol/L (135-145); TOTAL PROTEIN 5.7 g/dL (6.4-8.9); TRIGLYCERIDES 119 mg/dL (48-352); VLDL CHOLESTEROL 24 mg/dL
[2023-07-29 20:12] LABS: ESTIMATED AVERAGE GLUCOSE 114 mg/dL (70-100); HEMOGLOBIN A1c% 5.6 % (4.27-6.07)
[2023-07-30 07:10] LABS: HIV SCREEN 4TH GENERATION Non Reactive (Non Reactive)
[2023-07-31 00:08] LABS: HCV AB Non Reactive (Non Reactive)
== END 2023-07-29 08:26 | disposition home or self-care (01) ==
LOC: LAB.S 08:25
PROVIDERS: ATTEND Internal Medicine
DX: K50.111 Crohn's disease of large intestine with rectal bleeding (principal); Z11.59 Encounter for screening for other viral diseases; Z11.4 Encounter for screening for human immunodeficiency virus [HIV]; Z13.228 Encounter for screening for other metabolic disorders; Z13.220 Encounter for screening for lipoid disorders; Z13.29 Encounter for screening for other suspected endocrine disorder; Z13.0 Encounter for screening for diseases of the blood and blood-forming organs and certain disorders involving the immune mechanism
CPT/HCPCS: 36415; 80053; 80061; 83036; 83721; 84443; 85027; 86803; 87389

== ENCOUNTER 2023-09-09 11:13 | Outpatient (CLI) | payer MEDICAID ==
[2023-09-09 14:58] LABS: BASOPHILS # (AUTO) 0.1 10^3/uL (0.0-0.1); BASOPHILS % (AUTO) 0.7 %; EOSINOPHILS # (AUTO) 0.1 10^3/uL (0.0-0.7); EOSINOPHILS % (AUTO) 1.1 %; HCT - HEMATOCRIT 27.4 % (37.0-47.0); HGB - HEMOGLOBIN 8.1 g/dL (12.0-16.0); LYMPHOCYTES # (AUTO) 2.3 10^3/uL (1.5-3.5); MEAN CORPUSCULAR HEMOGLOBIN 22.6 pg (27.0-31.0); MEAN CORPUSCULAR HGB CONC 29.6 g/dL (32.0-36.0); MEAN CORPUSCULAR VOLUME 76.5 fL (81.0-99.0); MONOCYTES # (AUTO) 1.2 10^3/uL (0.0-1.0); MONOCYTES % (AUTO) 11.2 %; NEUTROPHILS % (AUTO) 65.3 %; RED BLOOD COUNT 3.58 10^6/uL (4.20-5.40); RED CELL DISTRIBUTION WIDTH 17.7 % (12.0-15.0); WHITE BLOOD COUNT 10.7 x10^3/uL (4.8-10.8)
[2023-09-09 15:31] LABS: PLT - PLATELET COUNT 858 10^3/uL (130-450); SLIDE REVIEW? Indicated
[2023-09-09 15:57] LABS: SLIDE SENT FOR PATH REVIEW? Indicated
[2023-09-09 16:01] LABS: PLATELET ESTIMATE, MANUAL INCREASED (>450,000) (NORMAL); PLATELET MORPHOLOGY NORMAL APPEARANCE (NORMAL)
[2023-09-10 03:11] LABS: HBsAG SCREEN Negative (Negative); HEPATITIS B SURFACE AB QUANT 13.8 mIU/mL (Immunity>9.9)
== END 2023-09-09 11:14 | disposition home or self-care (01) ==
LOC: LAB.S 11:13
PROVIDERS: ATTEND Internal Medicine
DX: K50.111 Crohn's disease of large intestine with rectal bleeding (principal)
CPT/HCPCS: 36415; 81599; 85025; 86317; 86704; 87340

== ENCOUNTER 2023-10-05 08:00 | Outpatient (CLI) | payer MEDICAID ==
[2023-10-05 20:05] LABS: BASOPHILS % (AUTO) 0.5 %; EOSINOPHILS # (AUTO) 0.1 10^3/uL (0.0-0.7); EOSINOPHILS % (AUTO) 0.8 %; HCT - HEMATOCRIT 23.4 % (37.0-47.0); LYMPHOCYTES # (AUTO) 2.2 10^3/uL (1.5-3.5); LYMPHOCYTES % (AUTO) 27.4 %; MEAN CORPUSCULAR HGB CONC 29.9 g/dL (32.0-36.0); MEAN CORPUSCULAR VOLUME 73.6 fL (81.0-99.0); MONOCYTES # (AUTO) 1.2 10^3/uL (0.0-1.0); MONOCYTES % (AUTO) 14.9 %; NEUTROPHILS # (AUTO) 4.5 10^3/uL (1.5-6.6); RED BLOOD COUNT 3.18 10^6/uL (4.20-5.40)
[2023-10-05 20:37] LABS: PLT - PLATELET COUNT 847 10^3/uL (130-450); SLIDE REVIEW? Indicated
[2023-10-05 20:47] LABS: PLATELET ESTIMATE, MANUAL INCREASED (>450,000) (NORMAL); PLATELET MORPHOLOGY NORMAL APPEARANCE (NORMAL)
== END 2023-10-05 23:59 | disposition home or self-care (01) ==
LOC: LAB.S 08:00
PROVIDERS: ATTEND Internal Medicine
DX: D75.839 Thrombocytosis, unspecified (principal)
CPT/HCPCS: 36415; 85025